=== PATIENT | female | born 1995 | race African-American/Black ===

== ENCOUNTER 2017-11-24 12:25 | Emergency (ER) | payer OTHER, SELFPAY ==
[2017-11-24] MEDS ORDERED: Acetaminophen 500 MG TAB ONE (13:28)
[2017-11-24 13:30] LABS: Pregnancy Test - Urine (BHCG) Negative (Negative); Pregu Control Background? CLEAR/WHITE (CLR/WHITE); Pregu Control Bar Appear? YES (CONTROL BAR); Specific Gravity 1.026 (1.002-1.036)
== END 2017-11-24 14:05 | disposition home or self-care (01) ==
LOC: ERS 12:25
DX: J11.1 Influenza due to unidentified influenza virus with other respiratory manifestations (principal)
CPT/HCPCS: 81025; 87081; 87430; 87804; 99283

== ENCOUNTER 2017-12-11 08:13 | Emergency (ER) | payer SELFPAY ==
[2017-12-11] MEDS ORDERED: Ondansetron ODT 4 MG TAB ONE (08:45)
[2017-12-11 08:50] LABS: Bilirubin Negative (Negative); Blood, Urine Negative (Negative); Clarity Clear (Clear); Glucose, Urine (Dipstick) Negative (Negative); Leukocyte Negative (Negative); Nitrite Negative (Negative); Protein, Urine (Dipstick) Negative (Neg-Trace); Urobilinogen 0.2 mg/dL (0.2-1.0); pH, Urine 5.5 (5.0-9.0)
[2017-12-11 08:51] LABS: Pregnancy Test - Urine (BHCG) Negative (Negative); Pregu Control Background? CLEAR/WHITE (CLR/WHITE); Pregu Control Bar Appear? YES (CONTROL BAR); Specific Gravity 1.027 (1.002-1.036); Specific Gravity, Urine 1.027 (1.002-1.036)
--- NOTE | 2017-12-11 09:41 | RAD ---
2 VIEWS OF ABDOMEN AND UPRIGHT VIEW OF CHEST: Date: 12/11/17 COMPARISON: None. HISTORY: Abdominal pain, sudden in onset, in the left lower quadrant. FINDINGS: Supine and upright views of the abdomen and upright view of the chest shows nonspecific, nonobstructi ve bowel gas pattern. No free air or air fluid levels are seen on upright examination. The heart is normal in size. There is no evidence of consolidation, mass, or pleural effusion. IMPRESSION: No evidence of obstruction or acute cardiopulmonary process. POS: [facility]
--- NOTE | 2017-12-11 10:13 | ULT ---
PELVIC ULTRASOUND: HISTORY: Left lower quadrant abdominal/pelvic pain. Evaluate for ovarian torsion. TECHNIQUE: Multiplanar, rodriguez scale and color Doppler images were obtained in a transabdominal and transvaginal p elvic ultrasound. Spectral analysis of the Doppler waveforms of the ovaries was performed. FINDINGS: The uterus is normal in size and appearance without focal abnormality. Endometrial stripe is normal in thickness measuring 4 mm. A small amount of free fluid is seen in the pelvis adjacent to the left ovary. There is a follicle i n the left ovary measuring 3.2 cm in greatest dimension. This is likely physiologic. No follicles a re seen in the right ovary. Normal flow was seen within both ovaries. IMPRESSION: No significant pelvic abnormality. POS: [facility]
[2017-12-11] MEDS ORDERED: Ibuprofen 600 MG TAB ONE (10:29)
[2017-12-13 00:33] LABS: Chlamydia by PCR Not Detected (NotDetected); GC by PCR Not Detected (NotDetected)
== END 2017-12-11 10:33 | disposition home or self-care (01) ==
LOC: SCSER 08:13
DX: R10.32 Left lower quadrant pain (principal); G43.909 Migraine, unspecified, not intractable, without status migrainosus
CPT/HCPCS: 74022; 76856; 81003; 81025; 87480; 87491; 87510; 87591; 87660; Q0162

== ENCOUNTER 2018-06-13 15:56 | Emergency (ER) | payer SELFPAY ==
[2018-06-13 18:08] LABS: Bilirubin Negative (Negative); Blood, Urine Negative (Negative); Clarity CLOUDY (Clear); Glucose, Urine (Dipstick) Negative (Negative); Leukocyte Moderate (Negative); Nitrite Negative (Negative); Protein, Urine (Dipstick) Negative (Neg-Trace); Specific Gravity, Urine 1.028 (1.002-1.036); pH, Urine 6.5 (5.0-9.0)
[2018-06-13 18:11] LABS: Bacteria/HPF Rare-Few HPF (None Seen); Hyaline Casts/LPF 4-6 HYALINE CAST LPF (0-3 Hyaline); Pathc Cast-AUWi Flag 0.58 (0-2.49)
[2018-06-13 18:12] LABS: Pregnancy Test - Urine (BHCG) Negative (Negative); Pregu Control Background? CLEAR/WHITE (CLR/WHITE); Pregu Control Bar Appear? YES (CONTROL BAR); Specific Gravity 1.028 (1.002-1.036)
[2018-06-13 18:28] LABS: #Eosinphils 0.1 thou/uL (0.0-0.7); #Lymphocytes 1.9 thou/uL (1.20-3.40); #Monocytes 0.5 thou/uL (0.11-0.59); #Neutrophils 2.4 thou/uL (1.40-6.50); %Basophils 0.7 % (0.0-1.0); %Eosinophils 1.6 % (0.0-10.0); %Lymphocytes 39.7 % (21.0-51.0); %Monocytes 9.2 % (0.0-10.0); %Neutrophils 48.8 % (42.0-75.0); Mean Corpuscular HGB CONC 32.9 g/dL (32.0-36.0); Mean Corpuscular Hemoglobin 28.3 pg (27.0-31.0); Mean Platelet Volume 7.9 fL (7.4-10.4); Platelet Count 205 thou/uL (130-400); RBC Distribution Width 13.1 % (11.5-14.5); Red Blood Cell (RBC) Count 4.96 mill/uL (4.20-5.40); White Blood Cell (WBC) Count 4.9 thou/uL (4.8-10.8)
--- NOTE | 2018-06-13 18:29 | RAD ---
TWO VIEW CHEST: History: Chest pain. Comparison: 03-20-16 FINDINGS: The lungs are clear. No infiltrates. Heart and mediastinum unremarkable. Osseous structures unremarka ble. IMPRESSION: Unremarkable chest. POS: [facility]
[2018-06-13 18:50] LABS: Anion Gap 11 mmol/L (10-20); BUN (Urea Nitrogen) 11 mg/dL (7.0-18.7); Calc. Creatinine Clearance 0 mL/min (70-130); Calcium 9.4 mg/dL (7.8-10.44); Carbon Dioxide 25 mmol/L (22-29); Chloride 107 mmol/L (98-107); Estimated GFR-MDRD Greater than 90; Glucose 76 mg/dL (70-105); Potassium 3.7 mmol/L (3.5-5.1); Sodium 139 mmol/L (136-145)
[2018-06-13 18:55] LABS: Troponin I Less than 0.010 ng/mL (< 0.028)
== END 2018-06-13 19:40 | disposition home or self-care (01) ==
LOC: ERS 15:56
DX: N76.0 Acute vaginitis (principal)
CPT/HCPCS: 36415; 71046; 80048; 81003; 81015; 81025; 82553; 84484; 85025; 87086; 87480; 87491; 87510; 87591; 87660; 93005

== ENCOUNTER 2018-07-19 12:17 | Emergency (ER) | payer SELFPAY ==
[2018-07-19 12:41] LABS: #Lymphocytes 1.6 thou/uL (1.20-3.40); #Monocytes 0.4 thou/uL (0.11-0.59); #Neutrophils 1.3 thou/uL (1.40-6.50); %Basophils 0.7 % (0.0-1.0); %Lymphocytes 49.2 % (21.0-51.0); %Monocytes 10.8 % (0.0-10.0); %Neutrophils 38.2 % (42.0-75.0); Hemoglobin 13.7 g/dL (12.0-16.0); Mean Corpuscular HGB CONC 32.7 g/dL (32.0-36.0); Mean Corpuscular Hemoglobin 28.2 pg (27.0-31.0); Mean Corpuscular Volume 86.1 fL (78.0-98.0); Platelet Count 214 thou/uL (130-400); RBC Distribution Width 13.1 % (11.5-14.5); Red Blood Cell (RBC) Count 4.85 mill/uL (4.20-5.40); White Blood Cell (WBC) Count 3.3 thou/uL (4.8-10.8)
[2018-07-19 13:46] LABS: Bilirubin Negative (Negative); Blood, Urine Moderate (Negative); Clarity CLEAR (Clear); Glucose, Urine (Dipstick) Negative (Negative); Leukocyte Negative (Negative); Nitrite Negative (Negative); Protein, Urine (Dipstick) Negative (Neg-Trace); Specific Gravity, Urine 1.016 (1.002-1.036); Urobilinogen 0.2 mg/dL (0.2-1.0); pH, Urine 6.5 (5.0-9.0)
[2018-07-19 13:48] LABS: Bacteria/HPF None Seen HPF (None Seen); Hyaline Casts/LPF 0-3 HYALINE CAST LPF (0-3 Hyaline); Pathc Cast-AUWi Flag 0.14 (0-2.49); RBC/HPF GREATER THAN 50-TNTC HPF (0-3); Squamous Epithelial None Seen HPF (0-3); WBC/HPF None Seen HPF (0-3)
== END 2018-07-19 14:01 | disposition home or self-care (01) ==
LOC: ERS 12:17
DX: N93.8 Other specified abnormal uterine and vaginal bleeding (principal); G43.909 Migraine, unspecified, not intractable, without status migrainosus
CPT/HCPCS: 36415; 81003; 81015; 84702; 85025; 99284

== ENCOUNTER 2018-08-01 23:30 | Emergency (ER) | payer SELFPAY ==
[2018-08-02] MEDS ORDERED: Acetaminophen 500 MG TAB ONE (00:16)
--- NOTE | 2018-08-02 09:07 | CT ---
PRELIMINARY REPORT/[facility]/EMERGENTY AFTER-HOURS PROCEDURE CT Head Without Intravenous Contrast EXAM DATE/TIME: 08/02/2018 12:25 AM CLINICAL HISTORY: 22 years old, female; Pain; Headache; Headache not specified; Patient HX: Er 12; 22 yo f presents to ed with headache. Pt reports she hit her head around 11 pm tonight when she leaned back too hard in a chair, reports a headache to the back of her head since time of injury. Pt reports neck pain and nausea. Pt denies loc, denies vomiting, denies back pain. Pt denies any other medical issues, den ies any daily medications, denies any medication allergies. TECHNIQUE: Axial computed tomography images of the head/brain without intravenous contrast. COMPARISON: No relevant prior studies available. FINDINGS: Brain: Unremarkable. No hemorrhage. No significant white matter disease. No edema. Ventricles: Unremarkable. No ventriculomegaly. Bones/joints: Unremarkable. No acute fracture. Soft tissues: Unremarkable. Sinuses: Unremarkable as visualized. No acute sinusitis. Mastoid air cells: Unremarkable as visualized. No mastoid effusion. IMPRESSION: No acute intracranial abnormality. Thank you for allowing us to participate in the care of your patient. Dictated and Authenticated by: Al Arango MD 08/02/2018 12:36 AM Central Time ([place] & [place]) FINAL REPORT NONCONTRAST HEAD CT: HISTORY: Injury. Headache. Posttraumatic pain. COMPARISON: None. FINDINGS: This report is in agreement with the preliminary report by [facility]. No intracranial posttraumatic sequel ae. POS: [facility]
== END 2018-08-02 01:00 | disposition home or self-care (01) ==
LOC: ERS 23:30
DX: S09.90XA Unspecified injury of head, initial encounter (principal); G43.909 Migraine, unspecified, not intractable, without status migrainosus; W22.8XXA Striking against or struck by other objects, initial encounter
CPT/HCPCS: 70450

== ENCOUNTER 2018-08-22 17:41 | Emergency (ER) | payer SELFPAY ==
[2018-08-22 18:05] LABS: Bilirubin Negative (Negative); Blood, Urine Negative (Negative); Clarity CLEAR (Clear); Glucose, Urine (Dipstick) Negative (Negative); Leukocyte Negative (Negative); Nitrite Negative (Negative); Protein, Urine (Dipstick) Negative (Neg-Trace); Specific Gravity, Urine 1.034 (1.002-1.036); pH, Urine 5.5 (5.0-9.0)
[2018-08-22 18:07] LABS: Pregnancy Test - Urine (BHCG) Negative (Negative)
[2018-08-22 18:08] LABS: Pregu Control Background? CLEAR/WHITE (CLR/WHITE); Pregu Control Bar Appear? YES (CONTROL BAR); Specific Gravity 1.034 (1.002-1.036)
[2018-08-22 18:30] LABS: #Eosinphils 0.1 thou/uL (0.0-0.7); #Lymphocytes 2.4 thou/uL (1.20-3.40); #Monocytes 0.4 thou/uL (0.11-0.59); #Neutrophils 3.3 thou/uL (1.40-6.50); %Basophils 0.7 % (0.0-1.0); %Eosinophils 1.6 % (0.0-10.0); %Monocytes 6.5 % (0.0-10.0); %Neutrophils 53.2 % (42.0-75.0); Hemoglobin 13.3 g/dL (12.0-16.0); Mean Corpuscular Hemoglobin 26.9 pg (27.0-31.0); Mean Corpuscular Volume 86.9 fL (78.0-98.0); Mean Platelet Volume 8.4 fL (7.4-10.4); Platelet Count 261 thou/uL (130-400); RBC Distribution Width 12.7 % (11.5-14.5); Red Blood Cell (RBC) Count 4.93 mill/uL (4.20-5.40); White Blood Cell (WBC) Count 6.3 thou/uL (4.8-10.8)
[2018-08-22] MEDS ORDERED: Ondansetron HCl/PF 4 MG/2 ML Vial ONE (18:55)
[2018-08-22] MEDS ORDERED: Ketorolac Tromethamine 30 MG/ML VIAL ONE (18:55)
[2018-08-22 19:02] LABS: ALT (SGPT) 15 U/L (8-55); AST (SGOT) 22 U/L (5-34); Albumin 3.8 g/dL (3.5-5.0); Alkaline Phosphatase 69 U/L (40-150); Anion Gap 11 mmol/L (10-20); BUN (Urea Nitrogen) 13 mg/dL (7.0-18.7); Bilirubin, Total 0.4 mg/dL (0.2-1.2); Calc. Creatinine Clearance 0 mL/min (70-130); Calcium 9.1 mg/dL (7.8-10.44); Carbon Dioxide 24 mmol/L (22-29); Chloride 108 mmol/L (98-107); Estimated GFR-MDRD Greater than 90; Globulin 3.7 g/dL (2.4-3.5); Glucose 86 mg/dL (70-105); Lipase 16 U/L (8-78); Potassium 4.3 mmol/L (3.5-5.1); Protein, Total 7.5 g/dL (6.0-8.3); Sodium 139 mmol/L (136-145)
--- NOTE | 2018-08-22 19:57 | ULT ---
ULTRASOUND ABDOMEN LIMITED: (RIGHT UPPER QUADRANT) HISTORY: Right upper quadrant abdominal pain with nausea and emesis. FINDINGS: The gallbladder has normal wall thickness and has no evidence of gallstones or sludge. The hepatic e chogenicity is normal. The right kidney has normal echogenicity and has no hydronephrosis. The panc reas is obscured by shadowing from bowel gas. There is no biliary dilation. The common duct caliber is 3 mm. IMPRESSION: 1) No pathology identified. 2) Pancreas not visualized. pepe POS: [facility]
== END 2018-08-22 20:32 | disposition home or self-care (01) ==
LOC: ERS 17:41
DX: R10.11 Right upper quadrant pain (principal); R10.13 Epigastric pain; G43.909 Migraine, unspecified, not intractable, without status migrainosus
CPT/HCPCS: 76705; 80053; 81003; 81025; 83690; 85025; 96361; 96374; 96375; J1885; J2405

== ENCOUNTER 2018-12-09 13:31 | Emergency (ER) | payer SELFPAY | END 2018-12-09 14:42 | disposition left against medical advice (07) | LOC: ERS 13:31 | DX: Z53.21 Procedure and treatment not carried out due to patient leaving prior to being seen by health care provider (principal) ==

== ENCOUNTER 2019-02-13 21:32 | Emergency (ER) | payer SELFPAY ==
[~2019-02-13 21:32] MED LIST: ISOVUE-370 76%-LOCM 1 ML ONE
[2019-02-13 22:04] LABS: Bilirubin Negative (Negative); Blood, Urine Negative (Negative); Clarity CLEAR (Clear); Glucose, Urine (Dipstick) Negative (Negative); Leukocyte Negative (Negative); Nitrite Negative (Negative); Protein, Urine (Dipstick) Negative (Neg-Trace); Specific Gravity, Urine 1.027 (1.002-1.036); pH, Urine 5.5 (5.0-9.0)
[2019-02-13 22:05] LABS: Pregnancy Test - Urine (BHCG) Negative (Negative); Pregu Control Background? CLEAR/WHITE (CLR/WHITE); Pregu Control Bar Appear? YES (CONTROL BAR); Specific Gravity 1.027 (1.002-1.036)
--- NOTE | 2019-02-13 23:22 | CT ---
CT ABDOMEN AND PELVIS: 02/13/2019 HISTORY: Right lower quadrant pain. COMPARISON: 05/17/2016 TECHNIQUE: Axial CT imaging at 5 mm intervals, from the lung bases through the pubic symphysis, with IV contrast . Coronal reformatted imaging obtained. FINDINGS: Patchy areas of focal pulmonary parenchymal opacity are seen peripherally, within the left lower lobe , on images 5 through 8. A few scattered, irregular nodules are noted within the right lower lobe, i ncluding medially on image 15, posteriorly on image 12, laterally on image 12, and within the right m iddle lobe anteriorly on image 8, all new when compared to the prior exam. There is no pneumoperiton eum or free intraperitoneal fluid seen. The liver, gallbladder, spleen, pancreas, adrenal glands, and kidneys are unremarkable. Limited evaluation of the bowel without oral contrast media demonstrates no inflammatory change or ob struction. The appendix is visualized and is normal. The vascular structures appear patent with no lymphadenopathy noted in the retroperitoneum, pelvis, or mesentery. The osseous structures demonstra te no acute findings. IMPRESSION: 1. No evidence for free intraperitoneal air, small bowel obstruction, or appendicitis . 2. Focal areas of peripheral consolidative change within the left lower lobe, and multiple irregular right basilar pulmonary nodules. Given the patient's age and the configuration of these findings, a n infectious process is favored. Recommend short-term follow-up chest CT with IV contrast, following treatment, to document resolution . CODE T POS: [facility]
[2019-02-13 23:29] LABS: #Basophils 0.1 thou/uL (0.0-0.2); #Eosinphils 0.1 thou/uL (0.0-0.7); #Lymphocytes 2.6 thou/uL (1.20-3.40); #Monocytes 0.4 thou/uL (0.11-0.59); #Neutrophils 3.4 thou/uL (1.40-6.50); %Basophils 1.1 % (0.0-1.0); %Eosinophils 1.6 % (0.0-10.0); %Monocytes 6.5 % (0.0-10.0); %Neutrophils 51.8 % (42.0-75.0); Hemoglobin 13.6 g/dL (12.0-16.0); Mean Corpuscular HGB CONC 31.5 g/dL (32.0-36.0); Mean Corpuscular Hemoglobin 27.3 pg (27.0-31.0); Mean Corpuscular Volume 86.6 fL (78.0-98.0); Mean Platelet Volume 8.5 fL (7.4-10.4); Platelet Count 250 thou/uL (130-400); RBC Distribution Width 13.2 % (11.5-14.5); Red Blood Cell (RBC) Count 4.97 mill/uL (4.20-5.40); White Blood Cell (WBC) Count 6.6 thou/uL (4.8-10.8)
[2019-02-13 23:47] LABS: ALT (SGPT) 19 U/L (8-55); AST (SGOT) 22 U/L (5-34); Albumin 3.8 g/dL (3.5-5.0); Alkaline Phosphatase 74 U/L (40-150); Anion Gap 15 mmol/L (10-20); BUN (Urea Nitrogen) 15 mg/dL (7.0-18.7); Bilirubin, Total 0.4 mg/dL (0.2-1.2); Calc. Creatinine Clearance 0 mL/min (70-130); Calcium 9.4 mg/dL (7.8-10.44); Carbon Dioxide 21 mmol/L (22-29); Chloride 107 mmol/L (98-107); Estimated GFR-MDRD Greater than 90; Globulin 3.6 g/dL (2.4-3.5); Glucose 85 mg/dL (70-105); Lipase 18 U/L (8-78); Potassium 3.9 mmol/L (3.5-5.1); Protein, Total 7.4 g/dL (6.0-8.3); Sodium 139 mmol/L (136-145)
== END 2019-02-14 00:38 | disposition home or self-care (01) ==
LOC: ERS 21:32
DX: R10.31 Right lower quadrant pain (principal); J18.0 Bronchopneumonia, unspecified organism
CPT/HCPCS: 36415; 74177; 80053; 81003; 81025; 83690; 85025; 87086; Q9966

== ENCOUNTER 2019-02-25 22:52 | Emergency (ER) | payer SELFPAY ==
[2019-02-26] MEDS ORDERED: Ibuprofen 200 MG TAB ONE (00:21)
== END 2019-02-26 00:28 | disposition home or self-care (01) ==
LOC: ERS 22:52
DX: J06.9 Acute upper respiratory infection, unspecified (principal); J30.9 Allergic rhinitis, unspecified; G43.909 Migraine, unspecified, not intractable, without status migrainosus
CPT/HCPCS: 87804; 99283

== ENCOUNTER 2019-03-01 00:35 | Emergency (ER) | payer SELFPAY ==
[2019-03-01] MEDS ORDERED: Ketorolac Tromethamine 60 MG/2 ML VIAL ONE (02:48)
--- NOTE | 2019-03-01 07:32 | RAD ---
XR Chest 1 View Portable History: [Chest pain] Comparison: Radiograph 2014. Radiograph May 2018. Findings: The lungs are clear. No pneumothorax or effusion. Cardiac silhouette and mediastinal contou rs are within normal limits. Impression: No acute intrathoracic abnormality.
== END 2019-03-01 03:31 | disposition home or self-care (01) ==
LOC: ERS 00:35
DX: R07.81 Pleurodynia (principal); J45.909 Unspecified asthma, uncomplicated; G43.909 Migraine, unspecified, not intractable, without status migrainosus
CPT/HCPCS: 71045; 93005; 96372; J1885

== ENCOUNTER 2019-04-08 22:02 | Emergency (ER) | payer SELFPAY | END 2019-04-08 22:30 | disposition home or self-care (01) | LOC: ERS 22:02 | DX: J01.90 Acute sinusitis, unspecified (principal); H92.01 Otalgia, right ear; G43.909 Migraine, unspecified, not intractable, without status migrainosus | CPT/HCPCS: 99283 ==

== ENCOUNTER 2019-05-10 12:43 | Emergency (ER) | payer SELFPAY ==
--- NOTE | 2019-05-10 14:01 | RAD ---
Exam:Left ankle 3 views HISTORY: Pain. COMPARISON: None FINDINGS: There is soft tissue swelling. No fracture. Intact ankle mortise. IMPRESSION: No fracture. Soft tissue swelling is present.
== END 2019-05-10 14:37 | disposition home or self-care (01) ==
LOC: ERS 12:43
DX: S93.402A Sprain of unspecified ligament of left ankle, initial encounter (principal); X50.9XXA Other and unspecified overexertion or strenuous movements or postures, initial encounter

== ENCOUNTER 2019-05-22 16:50 | Emergency (ER) | payer SELFPAY ==
[2019-05-22 17:29] LABS: #Eosinphils 0.1 thou/uL (0.0-0.7); #Monocytes 0.4 thou/uL (0.11-0.59); #Neutrophils 3.4 thou/uL (1.40-6.50); %Basophils 0.7 % (0.0-1.0); %Eosinophils 1.4 % (0.0-10.0); %Lymphocytes 33.6 % (21.0-51.0); %Monocytes 6.4 % (0.0-10.0); %Neutrophils 57.8 % (42.0-75.0); Hemoglobin 12.6 g/dL (12.0-16.0); Mean Corpuscular HGB CONC 31.9 g/dL (32.0-36.0); Mean Corpuscular Hemoglobin 27.2 pg (27.0-31.0); Mean Corpuscular Volume 85.2 fL (78.0-98.0); Mean Platelet Volume 8.4 fL (7.4-10.4); Platelet Count 232 thou/uL (130-400); RBC Distribution Width 13.5 % (11.5-14.5); Red Blood Cell (RBC) Count 4.64 mill/uL (4.20-5.40)
[2019-05-22 17:42] LABS: BHCG - Serum Negative (NEGATIVE); Pregs Control Background? CLEAR/WHITE (CLR/WHITE); Pregs Control Bar Appear? YES (CONTROL BAR)
[2019-05-22] MEDS ORDERED: Acetaminophen 500 MG TAB ONE (18:40)
[2019-05-22] MEDS ORDERED: diphenhydrAMINE 12.5 MG/5 ML UDCUP ONE (19:01)
[2019-05-22] MEDS ORDERED: Metoclopramide 10 MG/10 ML UDCUP ONE (19:01)
[2019-05-22] MEDS ORDERED: diphenhydrAMINE 50 MG/ML VIAL ONE (19:05)
[2019-05-22] MEDS ORDERED: Metoclopramide HCl 10 MG/2 ML VIAL ONE (19:05)
[2019-05-22 19:06] LABS: ALT (SGPT) 15 U/L (8-55); AST (SGOT) 18 U/L (5-34); Albumin 4.2 g/dL (3.5-5.0); Alkaline Phosphatase 65 U/L (40-150); Anion Gap 14 mmol/L (10-20); BUN (Urea Nitrogen) 11 mg/dL (7.0-18.7); Bilirubin, Total 0.7 mg/dL (0.2-1.2); Calc. Creatinine Clearance 0 mL/min (70-130); Calcium 9.6 mg/dL (7.8-10.44); Carbon Dioxide 25 mmol/L (22-29); Chloride 106 mmol/L (98-107); Estimated GFR-MDRD Greater than 90; Glucose 97 mg/dL (70-105); Potassium 4.2 mmol/L (3.5-5.1); Protein, Total 7.2 g/dL (6.0-8.3); Sodium 141 mmol/L (136-145)
== END 2019-05-22 20:31 | disposition home or self-care (01) ==
LOC: ERS 16:50
DX: N92.0 Excessive and frequent menstruation with regular cycle (principal); R51 Headache
CPT/HCPCS: 36415; 80053; 84703; 85025; 96365; 96375; J1200; J2765; Q0163

== ENCOUNTER 2019-05-31 19:24 | Emergency (ER) | payer SELFPAY ==
--- NOTE | 2019-05-31 20:06 | RAD ---
LEFT KNEE FOUR VIEWS: 05/31/19 HISTORY: Left knee pain. FINDINGS: No fracture or dislocation or bony destruction is seen. No joint effusion identified. IMPRESSION: Unremarkable exam. POS: [facility]
== END 2019-05-31 20:15 | disposition home or self-care (01) ==
LOC: ERS 19:24
DX: M25.562 Pain in left knee (principal)
CPT/HCPCS: 99281

== ENCOUNTER 2019-07-31 23:44 | Emergency (ER) | payer SELFPAY ==
[2019-08-01 00:29] LABS: Bacteria/HPF None Seen HPF (None Seen); Bilirubin Negative (Negative); Blood, Urine 2+ (Negative); Clarity Clear (Clear); Glucose, Urine (Dipstick) Normal (Negative); Leukocyte Negative Leu/uL (Negative); Nitrite Negative (Negative); Protein, Urine (Dipstick) 20 mg/dL (Neg-Trace); RBC/HPF 0-3 HPF (0-3); Squamous Epithelial 0-3 HPF (0-3); Urobilinogen 3 mg/dL (Less than 2); WBC/HPF 0-3 HPF (0-3)
[2019-08-01 00:30] LABS: Pregnancy Test - Urine (BHCG) Negative (Negative); Pregu Control Background? CLEAR/WHITE (CLR/WHITE); Pregu Control Bar Appear? YES (CONTROL BAR); Specific Gravity 1.038 (1.002-1.036)
[2019-08-01 00:49] LABS: #Basophils 0.1 thou/uL (0.0-0.2); #Eosinphils 0.2 thou/uL (0.0-0.7); #Lymphocytes 2.4 thou/uL (1.20-3.40); #Monocytes 0.5 thou/uL (0.11-0.59); #Neutrophils 3.4 thou/uL (1.40-6.50); %Basophils 0.8 % (0.0-1.0); %Eosinophils 2.3 % (0.0-10.0); %Monocytes 7.9 % (0.0-10.0); Hemoglobin 13.2 g/dL (12.0-16.0); Mean Corpuscular HGB CONC 32.8 g/dL (32.0-36.0); Mean Corpuscular Hemoglobin 27.6 pg (27.0-31.0); Platelet Count 248 thou/uL (130-400); RBC Distribution Width 13.8 % (11.5-14.5); Red Blood Cell (RBC) Count 4.79 mill/uL (4.20-5.40); White Blood Cell (WBC) Count 6.5 thou/uL (4.8-10.8)
[2019-08-01 01:12] LABS: ALT (SGPT) 16 U/L (8-55); AST (SGOT) 17 U/L (5-34); Albumin 4.2 g/dL (3.5-5.0); Alkaline Phosphatase 76 U/L (40-150); Anion Gap 12 mmol/L (10-20); BUN (Urea Nitrogen) 13 mg/dL (7.0-18.7); Bilirubin, Total 0.3 mg/dL (0.2-1.2); Calc. Creatinine Clearance 0 mL/min (70-130); Calcium 9.6 mg/dL (7.8-10.44); Carbon Dioxide 26 mmol/L (22-29); Chloride 106 mmol/L (98-107); Estimated GFR-MDRD Greater than 90; Globulin 3.4 g/dL (2.4-3.5); Glucose 95 mg/dL (70-105); Potassium 3.5 mmol/L (3.5-5.1); Protein, Total 7.6 g/dL (6.0-8.3); Sodium 140 mmol/L (136-145)
--- NOTE | 2019-08-01 08:05 | ULT ---
PRELIMINARY REPORT/[facility]/EMERGENCY AFTER HOURS PROCEDURE: EXAM: US Pelvis, Transvaginal US Duplex Artery and Vein of the Abdominal and/or Reproductive Organs, Complete EXAM DATE/TIME: 08/01/2019 12:49 AM CLINICAL HISTORY: 23 years old, female; Pelvic pain TECHNIQUE: Imaging protocol: Real-time transvaginal pelvic ultrasound with image documentation. Transvaginal mariela ging was used for better evaluation of the endometrium and adnexa. Real-time duplex ultrasound scan o f the arterial and venous flow of the abdominal and/or reproductive organs with B-mode, color Doppler flow and spectral waveform analysis with image documentation. Exam focused on the region of clinical concern. Complete exam. Duplex images required to evaluate vascular conditions. COMPARISON: No relevant prior studies available. FINDINGS: Transvaginal ultrasound was performed for evaluation of pelvic pain. Duplex ultrasound scan with colo r Doppler flow and spectral waveform analysis was also performed for evaluation of pelvic and ovarian blood flow and torsion. Uterus/cervix: Retroverted. Endometrium measures 1.3cm in thickness. No myometrial mass. Few Nabothia n cysts. Right adnexa: Right ovarian probable corpus luteum measuring up to 2.4cm. Right ovarian 1.8cm follicl e. Normal duplex of the ovary. No evidence of torsion. Left adnexa: No acute findings. No mass. Normal duplex of the ovary. No evidence of torsion. Free fluid: None. IMPRESSION: No acute findings. Right ovarian probable corpus luteum. Mild endometrial thickening. Thank you for allowing us to participate in the care of your patient. Dictated and Authenticated by: Huber Garduno MD 08/01/2019 2:16 AM Central Time ([place] & [place]) FINAL REPORT ULTRASOUND PELVIC TRANSVAGINAL: Date: 08/01/19 HISTORY: Pelvic pain. COMPARISON: None. FINDINGS/IMPRESSION: Real-time Fontenot scale with color Doppler and spectral analysis of the pelvis performed via transvagina l approach. Findings and impression are concordant with the preliminary report by [facility]. POS: [facility]
== END 2019-08-01 02:28 | disposition home or self-care (01) ==
LOC: ERS 23:44
DX: S39.011A Strain of muscle, fascia and tendon of abdomen, initial encounter (principal); G43.909 Migraine, unspecified, not intractable, without status migrainosus; J45.909 Unspecified asthma, uncomplicated; X50.9XXA Other and unspecified overexertion or strenuous movements or postures, initial encounter
CPT/HCPCS: 36415; 76856; 80053; 81003; 81015; 81025; 85025

== ENCOUNTER 2020-01-17 11:31 | Emergency (ER) | payer SELFPAY | END 2020-01-17 12:34 | disposition home or self-care (01) | LOC: ERS 11:31 | DX: J01.90 Acute sinusitis, unspecified (principal); J45.909 Unspecified asthma, uncomplicated | CPT/HCPCS: 99283 ==

== ENCOUNTER 2020-03-20 11:00 | Emergency (ER) | payer OTHER, SELFPAY ==
--- NOTE | 2020-03-20 13:24 | RAD ---
RIGHT SHOULDER RADIOGRAPHS THREE VIEWS: 03/20/20 PROVIDED CLINICAL HISTORY: Pain. FINDINGS: No evidence for fracture or other acute osseous abnormality. Alignment appears anatomic. Subacromial space appears maintained. The visualized right lung field appears clear. IMPRESSION: No evidence for an acute osseous abnormality. If there is persistent clinical concern, conservative m anagement and follow-up imaging are advised. POS: [facility]
== END 2020-03-20 12:35 | disposition home or self-care (01) ==
LOC: ERS 11:00
DX: S46.911A Strain of unspecified muscle, fascia and tendon at shoulder and upper arm level, right arm, initial encounter (principal); J45.909 Unspecified asthma, uncomplicated; G43.909 Migraine, unspecified, not intractable, without status migrainosus; X58.XXXA Exposure to other specified factors, initial encounter

== ENCOUNTER 2020-09-22 15:53 | Emergency (ER) | payer SELFPAY ==
--- NOTE | 2020-09-22 16:29 | RAD ---
Chest AP view INDICATION: Chest pain COMPARISON: Prior exam dated March 01, 2019 FINDINGS: Lungs: The lungs are clear Cardiac silhouette: The cardiomediastinal silhouette appears within normal limits. Pulmonary vasculature: Normal Pleural spaces: No pleural effusion or pneumothorax is demonstrated. Upper abdomen: No abnormality seen. Osseous structures: No acute osseous abnormality. Additional findings: None. IMPRESSION: No acute cardiopulmonary abnormality.
[2020-09-22 16:30] LABS: #Lymphocytes 2.1 thou/uL (1.20-3.40); #Monocytes 0.3 thou/uL (0.11-0.59); #Neutrophils 1.8 thou/uL (1.40-6.50); %Basophils 0.8 % (0.0-1.0); %Eosinophils 0.2 % (0.0-10.0); %Lymphocytes 49.5 % (21.0-51.0); %Monocytes 8.1 % (0.0-10.0); %Neutrophils 41.5 % (42.0-75.0); Hemoglobin 12.4 g/dL (12.0-16.0); Mean Corpuscular HGB CONC 31.8 g/dL (32.0-36.0); Mean Corpuscular Hemoglobin 25.2 pg (27.0-31.0); Mean Corpuscular Volume 79.4 fL (78.0-98.0); Mean Platelet Volume 9.4 fL (7.4-10.4); Platelet Count 225 thou/uL (130-400); RBC Distribution Width 15.5 % (11.5-14.5); White Blood Cell (WBC) Count 4.2 thou/uL (4.8-10.8)
[2020-09-22] MEDS ORDERED: Ketorolac Tromethamine 30 MG/ML VIAL ONE (16:36)
[2020-09-22 16:51] LABS: ALT (SGPT) 16 U/L (8-55); AST (SGOT) 23 U/L (5-34); Albumin 3.9 g/dL (3.5-5.0); Alkaline Phosphatase 56 U/L (40-110); Anion Gap 13 mmol/L (10-20); BUN (Urea Nitrogen) 13 mg/dL (7.0-18.7); Bilirubin, Total 0.5 mg/dL (0.2-1.2); Calc. Creatinine Clearance 0 mL/min (70-130); Calcium 8.9 mg/dL (7.8-10.44); Carbon Dioxide 19 mmol/L (22-29); Chloride 111 mmol/L (98-107); Estimated GFR-MDRD Greater than 90; Globulin 3.3 g/dL (2.4-3.5); Glucose 86 mg/dL (70-105); Lipase 13 U/L (8-78); Potassium 3.1 mmol/L (3.5-5.1); Protein, Total 7.2 g/dL (6.0-8.3); Sodium 140 mmol/L (136-145)
== END 2020-09-22 17:12 | disposition home or self-care (01) ==
LOC: ERS 15:53
DX: R07.81 Pleurodynia (principal); G43.909 Migraine, unspecified, not intractable, without status migrainosus; J45.909 Unspecified asthma, uncomplicated
CPT/HCPCS: 36415; 71045; 80053; 83690; 85025; 93005; 96374; J1885

== ENCOUNTER 2021-02-05 19:49 | Emergency (ER) | payer SELFPAY | END 2021-02-05 20:48 | disposition home or self-care (01) | LOC: ERS 19:49 | DX: M25.572 Pain in left ankle and joints of left foot (principal); M79.662 Pain in left lower leg; J45.909 Unspecified asthma, uncomplicated ==

== ENCOUNTER 2021-02-21 10:25 | Emergency (ER) | payer SELFPAY ==
[2021-02-21] MEDS ORDERED: Ketorolac Tromethamine 30 MG/ML VIAL ONE (11:59)
== END 2021-02-21 12:42 | disposition home or self-care (01) ==
LOC: ERS 10:25
DX: S16.1XXA Strain of muscle, fascia and tendon at neck level, initial encounter (principal); J45.909 Unspecified asthma, uncomplicated; X58.XXXA Exposure to other specified factors, initial encounter
CPT/HCPCS: 96372; 99283; J1885

== ENCOUNTER 2021-03-08 20:13 | Emergency (ER) | payer MEDICAID, SELFPAY ==
[2021-03-08] MEDS ORDERED: Dexamethasone 4 mg/ml Vial ONE (20:41)
== END 2021-03-08 20:50 | disposition home or self-care (01) ==
LOC: ERS 20:13
DX: J02.9 Acute pharyngitis, unspecified (principal); J45.909 Unspecified asthma, uncomplicated
CPT/HCPCS: 99281; J1100

== ENCOUNTER 2021-04-01 19:41 | Emergency (ER) | payer MEDICAID, SELFPAY | END 2021-04-01 22:18 | disposition home or self-care (01) | LOC: ERS 19:41 | DX: S60.222A Contusion of left hand, initial encounter (principal); J45.909 Unspecified asthma, uncomplicated; W23.0XXA Caught, crushed, jammed, or pinched between moving objects, initial encounter ==

== ENCOUNTER 2021-04-24 20:43 | Emergency (ER) | payer SELFPAY ==
[2021-04-24] MEDS ORDERED: HYDROcodone/Acetaminophen 10/325 mg Tablet ONE (21:10)
== END 2021-04-24 21:40 | disposition home or self-care (01) ==
LOC: ERS 20:43
DX: S39.012A Strain of muscle, fascia and tendon of lower back, initial encounter (principal); S20.212A Contusion of left front wall of thorax, initial encounter; J45.909 Unspecified asthma, uncomplicated; W14.XXXA Fall from tree, initial encounter

== ENCOUNTER 2021-06-14 15:35 | Emergency (ER) | payer SELFPAY ==
[2021-06-14] MEDS ORDERED: Ibuprofen 200 MG TAB ONE (18:26)
== END 2021-06-14 18:45 | disposition home or self-care (01) ==
LOC: ERS 15:35
DX: K02.9 Dental caries, unspecified (principal); G43.909 Migraine, unspecified, not intractable, without status migrainosus
CPT/HCPCS: 99283

== ENCOUNTER 2021-07-15 07:18 | Emergency (ER) | payer SELFPAY ==
[2021-07-15 07:53] LABS: Bilirubin Negative (Negative); Blood, Urine Negative (Negative); Clarity Clear (Clear); Glucose, Urine (Dipstick) Normal (Negative); Ketone, Urine Negative (Negative); Leukocyte Negative Leu/uL (Negative); Nitrite Negative (Negative); Protein, Urine (Dipstick) Negative (Neg-Trace); Specific Gravity, Urine 1.026 (1.002-1.036); pH, Urine 6.5 (5.0-9.0)
[2021-07-15 07:55] LABS: Pregnancy Test - Urine (BHCG) Negative (Negative); Pregu Control Background? CLEAR/WHITE (CLR/WHITE); Pregu Control Bar Appear? YES (CONTROL BAR); Specific Gravity 1.026 (1.002-1.036)
[2021-07-15 08:04] LABS: #Eosinphils 0.1 thou/uL (0.0-0.7); #Lymphocytes 2.5 thou/uL (1.20-3.40); #Monocytes 0.5 thou/uL (0.11-0.59); #Neutrophils 2.7 thou/uL (1.40-6.50); %Basophils 0.5 % (0.0-1.0); %Eosinophils 2.3 % (0.0-10.0); %Lymphocytes 41.9 % (21.0-51.0); %Monocytes 9.1 % (0.0-10.0); %Neutrophils 46.1 % (42.0-75.0); Mean Corpuscular HGB CONC 32.4 g/dL (32.0-36.0); Mean Corpuscular Volume 80.3 fL (78.0-98.0); Mean Platelet Volume 8.8 fL (7.4-10.4); Platelet Count 250 thou/uL (130-400); RBC Distribution Width 15.5 % (11.5-14.5); Red Blood Cell (RBC) Count 4.61 mill/uL (4.20-5.40); White Blood Cell (WBC) Count 5.8 thou/uL (4.8-10.8)
[2021-07-15 08:25] LABS: ALT (SGPT) 19 U/L (8-55); AST (SGOT) 18 U/L (5-34); Albumin 3.2 g/dL (3.5-5.0); Alkaline Phosphatase 61 U/L (40-110); Anion Gap 11 mmol/L (10-20); BUN (Urea Nitrogen) 15 mg/dL (7.0-18.7); Bilirubin, Total 0.3 mg/dL (0.2-1.2); Calc. Creatinine Clearance 0 mL/min (70-130); Calcium 8.9 mg/dL (7.8-10.44); Carbon Dioxide 20 mmol/L (22-29); Chloride 110 mmol/L (98-107); Globulin 3.4 g/dL (2.4-3.5); Glucose 97 mg/dL (70-105); Lipase 21 U/L (8-78); Potassium 3.9 mmol/L (3.5-5.1); Protein, Total 6.6 g/dL (6.0-8.3); Sodium 137 mmol/L (136-145)
[2021-07-15] MEDS ORDERED: Ketorolac Tromethamine 30 MG/ML VIAL ONE (09:10)
[2021-07-15] MEDS ORDERED: Iopamidol-370 76% 500 ML 1 ML ONE (15:04)
== END 2021-07-15 10:49 | disposition home or self-care (01) ==
LOC: ERS 07:18
DX: N83.202 Unspecified ovarian cyst, left side (principal); N83.201 Unspecified ovarian cyst, right side; J45.909 Unspecified asthma, uncomplicated
CPT/HCPCS: 36415; 74177; 80053; 81003; 81025; 83690; 85025; 96374; J1885; Q9967

== ENCOUNTER 2021-11-21 20:05 | Emergency (ER) | payer SELFPAY ==
[2021-11-21] MEDS ORDERED: Ibuprofen 800 MG TAB ONE (21:08)
[2021-11-21 21:11] LABS: #Lymphocytes 1.9 thou/uL (1.20-3.40); #Monocytes 0.8 thou/uL (0.11-0.59); #Neutrophils 12.6 thou/uL (1.40-6.50); %Eosinophils 0.3 % (0.0-10.0); %Lymphocytes 12.3 % (21.0-51.0); %Monocytes 4.9 % (0.0-10.0); %Neutrophils 82.4 % (42.0-75.0); Hemoglobin 15.4 g/dL (12.0-16.0); Mean Corpuscular HGB CONC 32.6 g/dL (32.0-36.0); Mean Corpuscular Hemoglobin 27.5 pg (27.0-31.0); Mean Corpuscular Volume 84.4 fL (78.0-98.0); Mean Platelet Volume 8.7 fL (7.4-10.4); Platelet Count 229 thou/uL (130-400); RBC Distribution Width 13.9 % (11.5-14.5); Red Blood Cell (RBC) Count 5.59 mill/uL (4.20-5.40); White Blood Cell (WBC) Count 15.3 thou/uL (4.8-10.8)
[2021-11-21 21:20] LABS: ALT (SGPT) 17 U/L (8-55); AST (SGOT) 17 U/L (5-34); Albumin 4.2 g/dL (3.5-5.0); Alkaline Phosphatase 78 U/L (40-110); Anion Gap 12 mmol/L (10-20); BUN (Urea Nitrogen) 11 mg/dL (7.0-18.7); Bilirubin, Total 0.7 mg/dL (0.2-1.2); Calc. Creatinine Clearance 0 mL/min (70-130); Calcium 9.7 mg/dL (7.8-10.44); Carbon Dioxide 27 mmol/L (22-29); Chloride 103 mmol/L (98-107); Glucose 89 mg/dL (70-105); Lipase 16 U/L (8-78); Potassium 3.8 mmol/L (3.5-5.1); Protein, Total 8.2 g/dL (6.0-8.3); Sodium 138 mmol/L (136-145)
[2021-11-21] MEDS ORDERED: Dexamethasone 4 mg/ml Vial ONE (21:54)
== END 2021-11-21 21:45 | disposition home or self-care (01) ==
LOC: ERS 20:05
DX: J02.0 Streptococcal pharyngitis (principal); J45.909 Unspecified asthma, uncomplicated
CPT/HCPCS: 71045; 80053; 83690; 84484; 85025; 87430; 93005; J1100

== ENCOUNTER 2022-03-25 11:35 | Emergency (ER) | payer SELFPAY | END 2022-03-25 12:40 | disposition home or self-care (01) | LOC: ERS 11:35 | DX: M25.572 Pain in left ankle and joints of left foot (principal) ==

== ENCOUNTER 2022-09-15 13:20 | Emergency (ER) | payer SELFPAY ==
[2022-09-15] MEDS ORDERED: Acetaminophen 500 MG TAB ONE (16:43)
== END 2022-09-15 16:57 | disposition home or self-care (01) ==
LOC: ERS 13:20
DX: M25.561 Pain in right knee (principal)

== ENCOUNTER 2023-03-18 04:59 | Emergency (ER) | payer SELFPAY ==
[2023-03-18] MEDS ORDERED: Ketorolac Tromethamine 30 MG/ML VIAL ONE (05:33)
== END 2023-03-18 05:54 | disposition home or self-care (01) ==
LOC: ERS 04:59
DX: K04.7 Periapical abscess without sinus (principal)
CPT/HCPCS: 96372; 99282; J1885

== ENCOUNTER 2023-05-11 13:02 | Emergency (ER) | payer SELFPAY ==
[2023-05-11 13:40] LABS: #Eosinphils 0.1 thou/uL (0.0-0.7); #Monocytes 0.5 thou/uL (0.11-0.59); #Neutrophils 2.6 thou/uL (1.40-6.50); %Basophils 0.6 % (0.0-1.0); %Eosinophils 1.7 % (0.0-10.0); %Lymphocytes 39.5 % (21.0-51.0); %Monocytes 9.2 % (0.0-10.0); %Neutrophils 48.8 % (42.0-75.0); Hemoglobin 14.1 g/dL (12.0-16.0); Mean Corpuscular Hemoglobin 28.3 pg (27.0-31.0); Mean Corpuscular Volume 88.4 fl (78.0-98.0); Mean Platelet Volume 10.8 fL (7.4-10.4); Platelet Count 263 10x3/uL (130-400); RBC Distribution Width 14.3 % (11.5-14.5); Red Blood Cell (RBC) Count 4.99 mill/uL (4.20-5.40); White Blood Cell (WBC) Count 5.2 10x3/uL (4.8-10.8)
[2023-05-11 14:06] LABS: BHCG - Serum Negative (NEGATIVE); Pregs Control Background? CLEAR/WHITE (CLR/WHITE); Pregs Control Bar Appear? YES (CONTROL BAR)
[2023-05-11 14:09] LABS: ALT (SGPT) 19 U/L (8-55); AST (SGOT) 18 U/L (5-34); Albumin 3.9 g/dL (3.5-5.0); Alkaline Phosphatase 56 U/L (40-110); Anion Gap 11 mmol/L (10-20); BUN (Urea Nitrogen) 12 mg/dL (7.0-18.7); Bilirubin, Total 0.4 mg/dL (0.2-1.2); Calc. Creatinine Clearance 0 mL/min (70-130); Calcium 9.4 mg/dL (7.8-10.44); Carbon Dioxide 24 mmol/L (22-29); Chloride 106 mmol/L (98-107); Estimated GFR 106; Globulin 3.4 g/dL (2.4-3.5); Glucose 80 mg/dL (70-105); Lipase 18 U/L (8-78); Protein, Total 7.3 g/dL (6.0-8.3); Sodium 137 mmol/L (136-145)
[2023-05-11 14:54] LABS: Bacteria/HPF None Seen HPF (None Seen); Bilirubin Negative (Negative); Blood, Urine Negative (Negative); CAUTI Indications for Culture Pelvic or flank pain; Clarity Clear (Clear); Glucose, Urine (Dipstick) Normal (Negative); Ketone, Urine Negative (Negative); Leukocyte Negative Leu/uL (Negative); Nitrite Negative (Negative); Protein, Urine (Dipstick) Negative (Neg-Trace); RBC/HPF 0-3 HPF (0-3); Specific Gravity, Urine 1.025 (1.002-1.036); Squamous Epithelial 0-3 HPF (0-3); Urobilinogen Normal mg/dL (Less than 2); WBC/HPF 0-3 HPF (0-3); pH, Urine 5.5 (5.0-9.0)
[2023-05-11 14:56] LABS: Urine Culture Reflex No No
[2023-05-11] MEDS ORDERED: Ketorolac Tromethamine 30 MG/ML VIAL ONE (15:42)
== END 2023-05-11 16:10 | disposition home or self-care (01) ==
LOC: ERS 13:02
DX: R10.31 Right lower quadrant pain (principal)
CPT/HCPCS: 36415; 71046; 80053; 81001; 83690; 84484; 84703; 85025; 93005; 96372; J1885

== ENCOUNTER 2023-06-15 07:45 | Emergency (ER) | payer MEDICAID, SELFPAY ==
[2023-06-15 09:24] LABS: Bacteria/HPF None Seen HPF (None Seen); Bilirubin Negative (Negative); Blood, Urine Negative (Negative); CAUTI Indications for Culture Dysuria,urgency,freq; Clarity Clear (Clear); Glucose, Urine (Dipstick) Normal (Negative); Ketone, Urine Negative (Negative); Leukocyte Negative Leu/uL (Negative); Nitrite Negative (Negative); Protein, Urine (Dipstick) 10 mg/dL (Neg-Trace); RBC/HPF 0-3 HPF (0-3); Specific Gravity, Urine 1.031 (1.002-1.036); Squamous Epithelial 0-3 HPF (0-3); WBC/HPF 0-3 HPF (0-3); pH, Urine 6.5 (5.0-9.0)
[2023-06-15 09:25] LABS: Pregnancy Test - Urine (BHCG) Negative (Negative); Pregu Control Background? CLEAR/WHITE (CLR/WHITE); Pregu Control Bar Appear? YES (CONTROL BAR); Specific Gravity 1.031 (1.002-1.036); Urine Culture Reflex No No
[2023-06-15] MEDS ORDERED: Bicillin LA 1.2 MILLION UNITS/2 ML SYRINGE ONE (09:27)
[2023-06-15] MEDS ORDERED: Dexamethasone 4 MG TAB ONE (09:27)
== END 2023-06-15 09:54 | disposition home or self-care (01) ==
LOC: ERS 07:45
DX: B37.9 Candidiasis, unspecified (principal); J02.0 Streptococcal pharyngitis
CPT/HCPCS: 81001; 81025; 87430; 96372; 99283; J0561; J8540

== ENCOUNTER 2023-09-02 19:31 | Emergency (ER) | payer SELFPAY ==
[2023-09-02] MEDS ORDERED: Acetaminophen 500 MG TAB ONE (20:52)
== END 2023-09-02 21:02 | disposition home or self-care (01) ==
LOC: ERS 19:31
DX: M79.10 Myalgia, unspecified site (principal)

== ENCOUNTER 2024-01-18 07:33 | Emergency (ER) | payer SELFPAY ==
[2024-01-18 08:04] LABS: #Eosinphils 0.1 thou/uL (0.0-0.7); #Monocytes 0.6 thou/uL (0.11-0.59); #Neutrophils 3.2 thou/uL (1.40-6.50); %Basophils 0.3 % (0.0-1.0); %Eosinophils 2.3 % (0.0-10.0); %Lymphocytes 30.9 % (21.0-51.0); %Monocytes 9.9 % (0.0-10.0); %Neutrophils 56.4 % (42.0-75.0); Hematocrit 42.6 % (36.0-47.0); Hemoglobin 13.9 g/dL (12.0-16.0); Mean Corpuscular HGB CONC 32.6 g/dL (32.0-36.0); Mean Corpuscular Hemoglobin 28.5 pg (27.0-31.0); Mean Corpuscular Volume 87.3 fl (78.0-98.0); Mean Platelet Volume 10.5 fL (7.4-10.4); Platelet Count 217 10x3/uL (130-400); RBC Distribution Width 13.5 % (11.5-14.5); Red Blood Cell (RBC) Count 4.88 mill/uL (4.20-5.40); White Blood Cell (WBC) Count 5.7 10x3/uL (4.8-10.8)
[2024-01-18] MEDS ORDERED: Ibuprofen 800 MG TAB ONE (08:13)
[2024-01-18 08:18] LABS: BHCG - Serum Negative (NEGATIVE); Pregs Control Background? CLEAR/WHITE (CLR/WHITE); Pregs Control Bar Appear? YES (CONTROL BAR)
[2024-01-18 08:38] LABS: Bilirubin Negative (Negative); Blood, Urine Negative (Negative); CAUTI Indications for Culture Pelvic or flank pain; Clarity Clear (Clear); Glucose, Urine (Dipstick) Normal (Negative); Ketone, Urine Negative (Negative); Leukocyte Negative Leu/uL (Negative); Nitrite Negative (Negative); Protein, Urine (Dipstick) Negative (Neg-Trace); RBC/HPF None Seen HPF (0-3); Specific Gravity, Urine 1.029 (1.002-1.036); Squamous Epithelial 0-3 HPF (0-3); Urobilinogen Normal mg/dL (Less than 2); WBC/HPF None Seen HPF (0-3); pH, Urine 5.5 (5.0-9.0)
[2024-01-18 08:38] LABS: ALT (SGPT) 17 U/L (8-55); AST (SGOT) 20 U/L (5-34); Albumin 3.7 g/dL (3.5-5.0); Alkaline Phosphatase 54 U/L (40-110); Anion Gap 13 mmol/L (10-20); BUN (Urea Nitrogen) 14 mg/dL (7.0-18.7); Bilirubin, Total 0.6 mg/dL (0.2-1.2); Calc. Creatinine Clearance 0 mL/min (70-130); Calcium 8.7 mg/dL (7.8-10.44); Carbon Dioxide 20 mmol/L (22-29); Chloride 108 mmol/L (98-107); Estimated GFR 109; Globulin 3.3 g/dL (2.4-3.5); Glucose 91 mg/dL (70-105); Lipase 15 U/L (8-78); Potassium 3.9 mmol/L (3.5-5.1); Sodium 137 mmol/L (136-145)
[2024-01-18 08:39] LABS: Bacteria/HPF 1+ HPF (None Seen)
[2024-01-18 08:40] LABS: Urine Culture Reflex No No
[2024-01-18 08:59] LABS: Influenza A by NAA Not Detected (NotDetected); Influenza B by NAA Not Detected (NotDetected); SARS-CoV-2 NAA Rapid Test Not Detected (NotDetected)
[2024-01-18] MEDS ORDERED: cefTRIAXone (ROCEPHIN) 500 MG VIAL ONE (12:10)
[2024-01-18] MEDS ORDERED: Lidocaine 1% PF 5 ML VIAL ONE (12:10)
[2024-01-18 13:34] LABS: Chlam.trachomatis by PCR,Urine Not Detected (NotDetected); GC N.gonorrhoeae PCR,UrineVOID Not Detected (NotDetected)
== END 2024-01-18 12:17 | disposition home or self-care (01) ==
LOC: ERS 07:33
DX: N83.201 Unspecified ovarian cyst, right side (principal); Z55.6 Problems related to health literacy
CPT/HCPCS: 36415; 74177; 76856; 80053; 81001; 83690; 84703; 85025; 87491; 87591; 96372; J0696

== ENCOUNTER 2024-04-18 23:10 | Emergency (ER) | payer SELFPAY ==
[2024-04-18 23:40] LABS: Bacteria/HPF 2+ HPF (None Seen); Bilirubin Negative (Negative); Blood, Urine Negative (Negative); CAUTI Indications for Culture Dysuria,urgency,freq; Clarity Clear (Clear); Glucose, Urine (Dipstick) Normal (Negative); Ketone, Urine Negative (Negative); Leukocyte 250 Leu/uL (Negative); Nitrite Negative (Negative); Protein, Urine (Dipstick) 10 mg/dL (Neg-Trace); RBC/HPF 0-3 HPF (0-3); Specific Gravity, Urine 1.025 (1.002-1.036); Squamous Epithelial 0-3 HPF (0-3); Urobilinogen Normal mg/dL (Less than 2); WBC/HPF Greater than 50 HPF (0-3); pH, Urine 5.5 (5.0-9.0)
[2024-04-18 23:42] LABS: Pregnancy Test - Urine (BHCG) Negative (Negative); Pregu Control Background? CLEAR/WHITE (CLR/WHITE); Pregu Control Bar Appear? YES (CONTROL BAR); Specific Gravity 1.025 (1.002-1.036)
[2024-04-18 23:43] LABS: Urine Culture Reflex Yes Yes
[2024-04-19] MEDS ORDERED: Acetaminophen 500 MG TAB ONE (00:03)
[2024-04-19 11:49] LABS: Chlamydia by PCR, Vaginal Swab Not Detected (NotDetected); GC by PCR, Vaginal Swab Not Detected (NotDetected)
== END 2024-04-19 01:20 | disposition home or self-care (01) ==
LOC: ERS 23:10
DX: N39.0 Urinary tract infection, site not specified (principal); R03.0 Elevated blood-pressure reading, without diagnosis of hypertension
CPT/HCPCS: 81001; 81025; 87077; 87086; 87186; 87480; 87491; 87510; 87591; 87660; 99284

== ENCOUNTER 2024-05-30 13:09 | Emergency (ER) | payer SELFPAY ==
[2024-05-30] MEDS ORDERED: Acetaminophen 500 MG TAB ONE (13:35)
[2024-05-30 14:34] LABS: Influenza A by NAA Not Detected (NotDetected); Influenza B by NAA Not Detected (NotDetected); SARS-CoV-2 NAA Rapid Test Not Detected (NotDetected)
[2024-05-30] MEDS ORDERED: Ondansetron ODT 4 MG TAB ONE (14:35)
[2024-05-30] MEDS ORDERED: Dexamethasone 4 MG TAB ONE (14:35)
[2024-05-30] MEDS ORDERED: Bicillin LA 1.2 MILLION UNITS/2 ML SYRINGE ONE (14:35)
== END 2024-05-30 15:15 | disposition home or self-care (01) ==
LOC: ERS 13:09
DX: J02.0 Streptococcal pharyngitis (principal); R11.0 Nausea
CPT/HCPCS: 87430; 93005; 96372; J0561; J8540; Q0162

== ENCOUNTER 2024-06-03 06:49 | Emergency (ER) | payer SELFPAY ==
[2024-06-03] MEDS ORDERED: Dexamethasone 10 MG/ML VIAL ONE (07:15)
== END 2024-06-03 07:40 | disposition home or self-care (01) ==
LOC: ERS 06:49
DX: J02.9 Acute pharyngitis, unspecified (principal)
CPT/HCPCS: 87081; 87430; 99282; J1100

== ENCOUNTER 2024-10-10 07:40 | Emergency (ER) | payer SELFPAY ==
[2024-10-10 08:09] LABS: Pregnancy Test - Urine (BHCG) Negative (Negative)
[2024-10-10 08:11] LABS: Pregu Control Background? CLEAR/WHITE (CLR/WHITE); Pregu Control Bar Appear? YES (CONTROL BAR); Specific Gravity Less than 1.000 (1.002-1.036)
[2024-10-10 08:18] LABS: Bilirubin Negative (Negative); Blood, Urine 3+ (Negative); CAUTI Indications for Culture Pelvic or flank pain; Clarity Turbid (Clear); Glucose, Urine (Dipstick) Normal (Negative); Ketone, Urine Negative (Negative); Leukocyte Negative Leu/uL (Negative); Nitrite Negative (Negative); Protein, Urine (Dipstick) 10 mg/dL (Neg-Trace); RBC/HPF Greater than 50 HPF (0-3); Specific Gravity, Urine 1.026 (1.002-1.036); Urobilinogen Normal mg/dL (Less than 2); WBC/HPF 0-3 HPF (0-3); Yeast-Budding Rare HPF (None Seen); pH, Urine 5.5 (5.0-9.0)
[2024-10-10 08:33] LABS: Bacteria/HPF 1+ HPF (None Seen)
[2024-10-10 08:34] LABS: Calcium Oxalate Crystals 1+ HPF (None Seen)
[2024-10-10 08:36] LABS: #Basophils Less than 0.03 10x3/uL (0.0-0.2); %Basophils 0.4 % (0.0-1.0); %Eosinophils 2.8 % (0.0-10.0); %Lymphocytes 32.2 % (21.0-51.0); %Monocytes 8.1 % (0.0-10.0); %Neutrophils 56.1 % (42.0-75.0); Hematocrit 44.6 % (36.0-47.0); Hemoglobin 14.5 g/dL (12.0-16.0); Mean Corpuscular HGB CONC 32.5 g/dL (32.0-36.0); Mean Corpuscular Hemoglobin 27.9 pg (27.0-31.0); Mean Corpuscular Volume 85.8 fL (78.0-98.0); Mean Platelet Volume 10.3 fL (7.4-10.4); Platelet Count 279 10x3/uL (130-400); RBC Distribution Width 13.5 % (11.5-14.5)
[2024-10-10 08:37] LABS: Urine Culture Reflex No No
[2024-10-10 08:54] LABS: ALT (SGPT) 20 U/L (8-55); AST (SGOT) 24 U/L (5-34); Albumin 3.7 g/dL (3.5-5.0); Alkaline Phosphatase 53 U/L (40-110); Anion Gap 13 mmol/L (10-20); BUN (Urea Nitrogen) 14 mg/dL (7.0-18.7); Bilirubin, Total 0.5 mg/dL (0.2-1.2); Calc. Creatinine Clearance 0 mL/min (70-130); Calcium 9.1 mg/dL (7.8-10.44); Carbon Dioxide 23 mmol/L (22-29); Chloride 109 mmol/L (98-107); Estimated GFR 110; Globulin 3.9 g/dL (2.4-3.5); Glucose 99 mg/dL (70-105); Potassium 4.3 mmol/L (3.5-5.1); Protein, Total 7.6 g/dL (6.0-8.3); Sodium 141 mmol/L (136-145)
[2024-10-10] MEDS ORDERED: Acetaminophen 500 MG TAB ONE (09:38)
[2024-10-10] MEDS ORDERED: Iopamidol-370 76% 500 ML MDV (1 ML CHARGE) ONE (15:20)
== END 2024-10-10 11:09 | disposition home or self-care (01) ==
LOC: ERS 07:40
DX: K08.89 Other specified disorders of teeth and supporting structures (principal); N83.201 Unspecified ovarian cyst, right side; N83.202 Unspecified ovarian cyst, left side
CPT/HCPCS: 70491; 76856; 80053; 81001; 81025; 85025; Q9967

== ENCOUNTER 2024-12-14 17:07 | Emergency (ER) | payer SELFPAY ==
[~2024-12-14 17:07] MED LIST changes: -ISOVUE-370 76%-LOCM 1 ML ONE; +Iopamidol-370 76% 500 ML MDV (1 ML CHARGE) ONE
[2024-12-14 18:37] LABS: #Basophils 0.03 10x3/uL (0.0-0.2); %Basophils 0.5 % (0.0-1.0); %Eosinophils 1.4 % (0.0-10.0); %Lymphocytes 30.3 % (21.0-51.0); %Monocytes 9.5 % (0.0-10.0); %Neutrophils 57.9 % (42.0-75.0); Hematocrit 43.1 % (36.0-47.0); Hemoglobin 13.8 g/dL (12.0-16.0); Mean Corpuscular Hemoglobin 27.8 pg (27.0-31.0); Mean Corpuscular Volume 86.7 fL (78.0-98.0); Mean Platelet Volume 10.7 fL (7.4-10.4); Platelet Count 251 10x3/uL (130-400); RBC Distribution Width 13.8 % (11.5-14.5); Red Blood Cell (RBC) Count 4.97 mill/uL (4.20-5.40)
[2024-12-14 18:52] LABS: BHCG - Serum Negative (NEGATIVE); Pregs Control Background? CLEAR/WHITE (CLR/WHITE); Pregs Control Bar Appear? YES (CONTROL BAR)
[2024-12-14 18:55] LABS: ALT (SGPT) 20 U/L (Less than 34); AST (SGOT) 27 U/L (11-34); Albumin 3.9 g/dL (3.1-4.5); Alkaline Phosphatase 49 U/L (40-110); Anion Gap 11 mmol/L (10-20); BUN (Urea Nitrogen) 13 mg/dL (7.0-18.7); Bilirubin, Total 0.5 mg/dL (0.3-1.2); Calc. Creatinine Clearance 0 mL/min (70-130); Calcium 9.2 mg/dL (7.8-10.44); Carbon Dioxide 22 mmol/L (22-29); Chloride 110 mmol/L (98-107); Estimated GFR 121; Globulin 3.7 g/dL (2.4-3.5); Glucose 77 mg/dL (70-105); Lipase 13 U/L (8-78); Protein, Total 7.6 g/dL (6.0-8.3); Sodium 139 mmol/L (136-145)
[2024-12-14 19:36] LABS: Bacteria/HPF None Seen HPF (None Seen); Bilirubin Negative (Negative); Blood, Urine Negative (Negative); CAUTI Indications for Culture Pelvic or flank pain; Clarity Clear (Clear); Glucose, Urine (Dipstick) Normal (Negative); Ketone, Urine 40 mg/dL (Negative); Leukocyte Negative Leu/uL (Negative); Nitrite Negative (Negative); Protein, Urine (Dipstick) Negative (Neg-Trace); RBC/HPF 0-3 HPF (0-3); Squamous Epithelial 0-3 HPF (0-3); Urobilinogen Normal mg/dL (Less than 2); WBC/HPF 0-3 HPF (0-3)
[2024-12-14 19:39] LABS: Urine Culture Reflex No No
== END 2024-12-14 22:00 | disposition home or self-care (01) ==
LOC: ERS 17:07
DX: N83.201 Unspecified ovarian cyst, right side (principal); N83.202 Unspecified ovarian cyst, left side
CPT/HCPCS: 36415; 74177; 76856; 80053; 81001; 83690; 84703; 85025; 93976; Q9967

== ENCOUNTER 2025-08-16 07:24 | Emergency (ER) | payer SELFPAY ==
[2025-08-16] MEDS ORDERED: Acetaminophen 500 MG TAB ONE (07:41)
== END 2025-08-16 07:46 | disposition home or self-care (01) ==
LOC: ERS 07:24
DX: K08.89 Other specified disorders of teeth and supporting structures (principal); R03.0 Elevated blood-pressure reading, without diagnosis of hypertension
CPT/HCPCS: 99282

== ENCOUNTER 2025-09-23 17:51 | Emergency (ER) | payer SELFPAY ==
[2025-09-23] MEDS ORDERED: HYDROcodone/Acetaminophen 10/325 mg Tablet ONE (19:23)
== END 2025-09-23 19:47 | disposition home or self-care (01) ==
LOC: ERS 17:51
DX: R22.0 Localized swelling, mass and lump, head (principal)
CPT/HCPCS: 99282